=== PATIENT | female | born 1960 | race Caucasian/White ===

== ENCOUNTER 2018-06-19 15:37 | Outpatient (CLI) | payer BC ==
--- NOTE | 2018-06-19 16:10 | PRG ---
DATE OF SERVICE: 06/19/2018 SUBJECTIVE: Tyesha Lynn is a 57-year-old female, who several years ago, I performed a laparoscopic video cholecystectomy. She presents now, referred by Dr. Maria, for a ventral hernia. This has been enlarging. She works for [employer]. Plan is to repair this with mesh with robotic approach. Risks and benefits explained, she consents. ALLERGIES: NONE. SOCIAL HISTORY: Tobacco cessation two years ago. Alcohol 2 to 3 beers a day. MEDICATIONS: 1. Simvastatin 20 mg a day. 2. Aspirin 81 mg a day. PAST MEDICAL HISTORY: TIA affecting her speech, resolved. She had a complete workup, carotid ultrasound and CT scan of brain, it was normal. PAST SURGICAL HISTORY: Laparoscopic cholecystectomy more than 10 years ago that I performed, . REVIEW OF SYSTEMS: Ten-point noncontributory. PHYSICAL EXAMINATION: VITAL SIGNS: Weight 184 pounds and height 62 inches. Blood pressure 139/73, pulse 92, and temperature 98.8 degrees. HEAD, EARS, EYES, NOSE, AND THROAT: Unremarkable. Poor dentition. LUNGS: Clear to auscultation. CARDIAC: Regular rate and rhythm without murmur or gallop. ABDOMEN: Soft and nondistended. She has a small umbilical hernia and above this, very large ventral hernia that I could reduce in best I can tell. There is probably about a 3 to 4 cm defect, but although, it was difficult to evaluate the fascial defect due to her tenderness and the incomplete reduction. EXTREMITIES: Unremarkable. ASSESSMENT AND PLAN: 1. Ventral hernia, enlarging, incompletely reducible. Would recommend robotic laparoscopic mesh repair. Outpatient risk of infection, bleeding, reoperation, and recurrence already discussed. 2. Alcohol use. 3. History of tobacco abuse, cessation two years ago. 4. History of transient ischemic attack, now on Crestor and aspirin. Job ID: [id number]
[2018-06-19 17:46] LABS: #Eosinphils 0.1 thou/uL (0.0-0.7); #Lymphocytes 2.1 thou/uL (1.20-3.40); #Monocytes 0.6 thou/uL (0.11-0.59); #Neutrophils 3.8 thou/uL (1.40-6.50); %Basophils 0.1 % (0.0-1.0); %Eosinophils 1.7 % (0.0-10.0); %Lymphocytes 31.9 % (21.0-51.0); %Neutrophils 57.3 % (42.0-75.0); Hemoglobin 14.2 g/dL (12.0-16.0); Mean Corpuscular HGB CONC 33.9 g/dL (32.0-36.0); Mean Corpuscular Hemoglobin 32.7 pg (27.0-31.0); Mean Corpuscular Volume 96.6 fL (78.0-98.0); Mean Platelet Volume 8.1 fL (7.4-10.4); Platelet Count 207 thou/uL (130-400); RBC Distribution Width 11.5 % (11.5-14.5); Red Blood Cell (RBC) Count 4.35 mill/uL (4.20-5.40); White Blood Cell (WBC) Count 6.7 thou/uL (4.8-10.8)
[2018-06-19 18:08] LABS: Anion Gap 12 mmol/L (10-20); BUN (Urea Nitrogen) 10 mg/dL (9.8-20.1); Calc. Creatinine Clearance 0 mL/min (70-130); Calcium 9.5 mg/dL (7.8-10.44); Carbon Dioxide 26 mmol/L (22-29); Chloride 106 mmol/L (98-107); Estimated GFR-MDRD 84; Glucose 72 mg/dL (70-105); Potassium 3.8 mmol/L (3.5-5.1); Sodium 140 mmol/L (136-145)
--- NOTE | 2018-06-20 19:01 | EKG ---
Test Reason : Blood Pressure : / mmHG Vent. Rate : 080 BPM Atrial Rate : 080 BPM P-R Int : 146 ms QRS Dur : 088 ms QT Int : 398 ms P-R-T Axes : -07 010 039 degrees QTc Int : 459 ms Normal sinus rhythm Normal ECG When compared with ECG of 17-DEC-2006 07:53, No significant change was found Confirmed by Uli MIRANDA ([id number]) on 06/20/2018 7:00:51 PM Referred By: ADAM Confirmed By:Uli MIRANDA
== END 2018-06-19 15:38 | disposition home or self-care (01) ==
LOC: LABBT 15:37
PROVIDERS: ATTEND Specialist
DX: Z01.818 Encounter for other preprocedural examination (principal); K43.9 Ventral hernia without obstruction or gangrene
CPT/HCPCS: 80048; 85025; 93005; 93010

== ENCOUNTER 2018-06-30 09:11 | Day surgery (SDC) | payer BC ==
[2018-06-19 16:13] VITALS: BMI 32.9
[2018-06-30] MEDS ORDERED: CEFAZOLIN 2 GM/50 ML BAG ONE (09:31)
[2018-06-30] MEDS ORDERED: Ketorolac Tromethamine 30 MG/ML VIAL ONE (09:31)
[2018-06-30] MEDS ORDERED: Bupivacaine/Epinephrine 0.25% 30 ML VIAL ONE (10:22)
[2018-06-30] MEDS ORDERED: Fentanyl 250 MCG/5 ML VIAL ONE (10:33)
[2018-06-30] MEDS ORDERED: Fentanyl 100 MCG/2 ML VIAL ONE ×2 (13:28→13:52)
[2018-06-30] MEDS ORDERED: HYDROcodone/Acetaminophen 5/325 mg Tablet ONE (14:20)
--- NOTE | 2018-06-30 16:32 | OP ---
DATE OF PROCEDURE: 06/30/2018 PREOPERATIVE DIAGNOSES: Ventral hernia and obesity. POSTOPERATIVE DIAGNOSES: Ventral hernia and obesity. PROCEDURE PERFORMED: Robotic laparoscopic repair of ventral hernia, primary fascial closure with reinforcement using round 15 cm Ventralight mesh. ANESTHESIA: General with local 0.5% Marcaine with epinephrine, 30 mL. DESCRIPTION OF PROCEDURE: The patient was taken to the operating room under general anesthesia in the supine position. Strickland catheter was placed at the beginning of the procedure and removed at the end. Abdomen was prepared with ChloraPrep and draped in routine fashion. Bilateral subcostal incision made. Pneumoperitoneum to 15 mmHg was obtained with Veress needle, replaced with 8 mm ports, and robotic scope inserted and to the left of xiphoid. An incision was made avoiding the falciform ligament and an 11-mm balloon port placed. Balloon inflated and secured against the fascia. The robot was docked, positioned, locked, and robotic repair of ventral hernia undertaken, taking down the falciform ligament reducing the hernia contents, which consists of fat and omentum. This was taken down using cautery dissection. Once this was completely reduced, there was a 4.5 cm defect. This was closed with continuous suture of #1 V-Loc to and fro reducing pneumoperitoneum to 11 mmHg during the closure. A 15 cm round Ventralight mesh secured to the abdominal cavity and secured with one of the needles and then secured circumferentially with a running suture of 2-0 V-Loc. Once this was completed, all noodles and sutures removed. The repair was intact. Pneumoperitoneum reduced. All instruments were removed. All skin incisions were approximated with subdermal 4-0 Monocryl. [place] glue applied. Abdominal binder applied. Job ID: [id number]
== END 2018-06-30 15:35 | disposition home or self-care (01) ==
LOC: SDC 09:11
PROVIDERS: ATTEND Specialist
PROC: 0WUF4JZ Supplement Abdominal Wall with Synthetic Substitute, Percutaneous Endoscopic Approach (ICD-10-PCS; principal; 2018-06-30)
DX: K43.9 Ventral hernia without obstruction or gangrene (principal); E66.9 Obesity, unspecified; F17.210 Nicotine dependence, cigarettes, uncomplicated; Z79.899 Other long term (current) drug therapy; Z68.32 Body mass index [BMI] 32.0-32.9, adult
CPT/HCPCS: 96374; J0131; J1885; J3010

== ENCOUNTER 2018-12-04 11:25 | Outpatient (CLI) | payer BC ==
[2018-12-04 13:07] LABS: #Basophils 0.1 thou/uL (0.0-0.2); #Eosinphils 0.1 thou/uL (0.0-0.7); #Lymphocytes 2.1 thou/uL (1.20-3.40); #Monocytes 0.8 thou/uL (0.11-0.59); #Neutrophils 6.1 thou/uL (1.40-6.50); %Basophils 0.8 % (0.0-1.0); %Eosinophils 0.6 % (0.0-10.0); %Lymphocytes 22.9 % (21.0-51.0); %Monocytes 8.9 % (0.0-10.0); %Neutrophils 66.8 % (42.0-75.0); Hemoglobin 13.4 g/dL (12.0-16.0); Mean Corpuscular Hemoglobin 32.9 pg (27.0-31.0); Mean Corpuscular Volume 96.7 fL (78.0-98.0); Mean Platelet Volume 7.8 fL (7.4-10.4); Platelet Count 237 thou/uL (130-400); RBC Distribution Width 11.6 % (11.5-14.5); Red Blood Cell (RBC) Count 4.08 mill/uL (4.20-5.40); White Blood Cell (WBC) Count 9.2 thou/uL (4.8-10.8)
--- NOTE | 2018-12-06 13:48 | EKG ---
Test Reason : Blood Pressure : / mmHG Vent. Rate : 076 BPM Atrial Rate : 076 BPM P-R Int : 142 ms QRS Dur : 096 ms QT Int : 394 ms P-R-T Axes : -19 014 060 degrees QTc Int : 443 ms Normal sinus rhythm Normal ECG When compared with ECG of 19-JUN-2018 16:52, No significant change was found Confirmed by DR. Min BERG ([id number]) on 12/06/2018 1:47:51 PM Referred By: VIKTORIYA Confirmed By:DR. Min BERG
== END 2018-12-04 11:26 | disposition home or self-care (01) ==
LOC: LABBT 11:25
PROVIDERS: ATTEND Orthopaedic Surgery
DX: Z01.818 Encounter for other preprocedural examination (principal); G56.01 Carpal tunnel syndrome, right upper limb
CPT/HCPCS: 85025; 93005; 93010

== ENCOUNTER 2018-12-10 05:54 | Day surgery (SDC) | payer BC ==
[2018-12-04 12:05] VITALS: BMI 31.4
--- NOTE | 2018-12-09 17:26 | HP ---
HISTORY OF PRESENT ILLNESS: The patient is a 57-year-old female with a 12- to 18-month history of pain and tingling in her right hand without injury. She has had persistent symptoms despite rest, restriction of activities, splinting, and anti-inflammatory medication. The pain and numbness are now interfering with day-to-day activities. PAST MEDICAL HISTORY: The patient has had previous mild stroke and a history of TIA. She had no major residual. She has had previous and cholecystectomy and a ventral hernia repair. CURRENT MEDICATIONS: Include Aleve, low-dose aspirin, simvastatin. ALLERGIES: SHE HAS NO KNOWN ALLERGIES. FAMILY HISTORY: Otherwise unremarkable. SOCIAL HISTORY: Otherwise unremarkable. REVIEW OF SYSTEMS: Otherwise unremarkable. PHYSICAL EXAMINATION: GENERAL: This is a healthy female. HEENT: Unremarkable. NECK: Supple. CHEST: Clear. HEART: Regular rate and rhythm. ABDOMEN: Soft, nontender. PELVIC: Deferred. RECTAL: Deferred. BREAST: Deferred. EXTREMITIES: Pertinent findings are related to the right wrist. There is no swelling. There is no tenderness. There is no definite atrophy. She has full range of motion. There is no focal motor deficit. There is a positive Tinel sign and pain with direct compression over the median nerve and a positive Phalen's test. There is subjective numbness in median nerve distribution. There is good capillary refill. Pulses are 2+. Nerve conduction studies are positive for carpal tunnel syndrome. IMPRESSION: Right carpal tunnel syndrome. PLAN: Endoscopic possible open right carpal tunnel release. The nature of the surgery, length of recovery, and potential complications such as infection, loss of motion, incomplete relief, nerve injury, recurrence, need for additional treatment, and repeat surgery were discussed in detail. Job ID: [id number]
[2018-12-10] MEDS ORDERED: Lidocaine 1% (PF) 30 ML VIAL ONE (06:39)
[2018-12-10] MEDS ORDERED: Fentanyl 100 MCG/2 ML VIAL ONE (08:28)
[2018-12-10] MEDS ORDERED: HYDROcodone/Acetaminophen 5/325 mg Tablet ONE (09:36)
[2018-12-10] MEDS ORDERED: Lidocaine 1% PF 5 ML VIAL ONE (13:58)
[2018-12-10] MEDS ORDERED: PROPOFOL 200 MG/20 ML VIAL ONE (13:58)
[2018-12-10] MEDS ORDERED: Hydrocortisone Sod Succ/PF 100 mg/2 ml Vial ONE (13:58)
--- NOTE | 2018-12-10 15:19 | OP ---
DATE OF PROCEDURE: 12/10/2018 ANESTHESIA: General. PREOPERATIVE DIAGNOSIS: Right carpal tunnel syndrome. POSTOPERATIVE DIAGNOSIS: Right carpal tunnel syndrome. PROCEDURE PERFORMED: Right endoscopic carpal tunnel release. DESCRIPTION OF PROCEDURE: After satisfactory anesthesia was induced in supine position, the patient was prepped and draped in routine manner. The right arm was elevated and exsanguinated with Esmarch bandage and the tourniquet inflated to 250 mmHg. A 2.2 cm transverse incision was made in the proximal wrist flexion crease, carried down through the subcutaneous tissues. Bleeding points were controlled with Bovie cautery. Using sharp and blunt dissection, a distally based flap at deep forearm fascia was developed and retracted distally. Palmaris longus tendon retracted radially. Proximal edge of the deep forearm fascia was split under direct visualization with small scissors to make sure there was no proximal impingement of the median nerve. Synovial elevator was introduced beneath the transverse carpal ligament. The synovium cleaned from the under surface. Carpal tunnel dilators were inserted. The Cloudcame endoscopic carpal tunnel system was introduced beneath the transverse carpal ligament in-line with the ring finger. The distal edge of the ligament was easily identified and divided in a distal proximal direction by pulling the trigger of the assembly and engaging the knife and withdrawing the scope proximally. This was done in several stages to make sure there was complete division of the transverse carpal ligament, which was documented with video printer. After withdrawing the scope, the carpal tunnel dilator could be inserted into the carpal tunnel and there was markedly improved passage and subcutaneous position of the instrument. The scope was reintroduced into the carpal tunnel. There was wide separation of the two leaves in the transverse carpal ligament. The tourniquet was released after 5 minutes. There was no excessive bleeding and the scope was withdrawn. The wound was then sterilely irrigated and closed with running subcuticular 3-0 nylon. Sterile dressing was applied and the patient immobilized in a Velcro wrist splint. She was awakened and taken to recovery in stable condition. There were no apparent intraoperative complications. The estimated blood loss was negligible. The patient will be discharged home in satisfactory condition, started on ice elevation, and given written wound care instructions. She was given a prescription for [place] 5 for pain, 24 tablets. She will be rechecked in my office in 10 to 14 days or sooner if there are any problems prior to that time. Job ID: [id number]
== END 2018-12-10 10:15 | disposition home or self-care (01) ==
LOC: SDC 05:54
PROVIDERS: ATTEND Orthopaedic Surgery
PROC: 01N54ZZ Release Median Nerve, Percutaneous Endoscopic Approach (ICD-10-PCS; principal; 2018-12-10)
DX: G56.01 Carpal tunnel syndrome, right upper limb (principal); Z79.82 Long term (current) use of aspirin; Z79.899 Other long term (current) drug therapy; Z86.73 Personal history of transient ischemic attack (TIA), and cerebral infarction without residual deficits
CPT/HCPCS: J0690; J1720; J2001; J2704; J3010